=== PATIENT | male | born 1945 | race Caucasian/White ===

== ENCOUNTER → 2017-12-31 | Outpatient (CLI) | payer BC | END | disposition home or self-care (01) | LOC: US 09:57 | DX: K80.20 Calculus of gallbladder without cholecystitis without obstruction (principal) | CPT/HCPCS: 76705 ==

== ENCOUNTER 2021-03-24 20:50 | Emergency (ER) | payer BC, MEDICARE ==
[~2021-03-24] VITALS: Ht 175.3 cm; Wt 111.4 kg
[2021-03-24 21:13] VITALS: BP 162/76
[2021-03-24] MEDS ORDERED: NEOMY/BACITR/POLYMYXIN OINT PACKET. TP ONE (21:30)
--- NOTE | 2021-03-24 21:50 | RAD ---
Three-view left hand study Clinical indications: Dog bite FINDINGS: No acute fracture or dislocation or lytic process is seen. Old nonunited fracture of the me dial distal tuft of the fourth distal phalanx is seen. Old nonunited accessory ossification center of the distal ulnar styloid process is seen. No soft tissue air or radiopaque foreign body is evident. IMPRESSION: No acute osseous abnormality. Electronically signed by: Bernabe Mcgrath MD (03/24/2021 9:48 PM) [id number]
[2021-03-24] MEDS ORDERED: AMOX1TAB61 PO (21:56)
--- NOTE | 2021-03-24 21:59 | PHYS DOC ---
Past Medical History Past Medical History: Diabetes-Type II, Hypertension Past Surgical History: Other Additional Past Surgical Histo: C7 FX, LEFT WRIST PIN, BILAT ANKLE/FOOT PINS. Smoking Status: Former Smoker Alcohol Use: None Drug Use: None General Adult EDM: Chief Complaint: ANIMAL BITE HPI: HPI: 75-year-old male past medical history of [id number]-[id number] diabetes, hypertension and obesity presents to the ED with complaints of Takes daily aspirin, no other anticoagulants. Review of Systems: Review of Systems: Constitutional: Denies fever or chills. [] Eyes: Denies change in visual acuity. [] HENT: Denies nasal congestion or sore throat. [] Respiratory: Denies cough or shortness of breath. [] Cardiovascular: Denies chest pain or edema. [] GI: Denies abdominal pain, nausea, vomiting, bloody stools or diarrhea. [] : Denies dysuria. [] Musculoskeletal: Denies back pain or joint pain. [] Integument: Denies rash. [] Neurologic: Denies headache, focal weakness or sensory changes. [] Endocrine: Denies polyuria or polydipsia. [] Lymphatic: Denies swollen glands. [] Psychiatric: Denies depression or anxiety. [] Heart Score: C/O Chest Pain: No Risk Factors: Risk Factors: DM, Current or recent (<one month) smoker, HTN, HLP, family history of CAD, obesity. Risk Scores: Score 0 - 3: 2.5% MACE over next 6 weeks - Discharge Home Score 4 - 6: 20.3% MACE over next 6 weeks - Admit for Clinical Observation Score 7 - 10: 72.7% MACE over next 6 weeks - Early Invasive Strategies Current Medications: Current Medications Medications (Trade) Dose Ordered Sig/Tuyet Start Time Stop Time Status Last Admin Dose Admin Neomycin/ Polymyxin/ Bacitracin (Triple Antibiotic Ointment) 1 pkt 1X ONCE 03/24/21 21:30 03/24/21 21:31 DC Allergies: Allergies: Allergies Coded Allergies Type Severity Reaction Last Updated Verified No Known Drug Allergies 03/17/14 No Physical Exam: PE: Constitutional: Well developed, well nourished, no acute distress, non-toxic appearance. HENT: Normocephalic, atraumatic, Eyes: EOMI, conjunctiva normal, no discharge. Neck: Normal range of motion, supple, Cardiovascular: S1/2 present, regular rhythm Lungs & Thorax: Speaking in full sentences, bilateral equal chest rise, no tachypnea or increased work of breathing Abdomen: soft, no tenderness, Skin: Warm, dry, no erythema, no rash. [] Back: No tenderness, no CVA tenderness. [] Extremities: No tenderness, no cyanosis, no lower extremity edema Neurologic: Alert and oriented X 3, normal motor function, normal sensory function, no focal deficits noted. [] Psychologic: Affect normal, judgement normal, mood normal. [] Current Patient Data: Vital Signs: Vital Signs Date Time Temp Pulse Resp B/P (MAP) Pulse Ox O2 Delivery O2 Flow Rate FiO2 03/24/21 21:13 98.2 84 18 162/76 (104) 96 Room Air 98.2 EKG: EKG: [] Radiology/Procedures: Radiology/Procedures: []IMAGING REPORT Signed PATIENT: FRED KELLOGG ACCOUNT: [id number] : 1945 LOCATION: ER AGE: 75 SEX: M EXAM STATUS: PRE ER ORD. PHYSICIAN: JAX WINSTON DO REASON: dog bite to 3r5d/4th spae PROCEDURE: HAND LEFT 3V Three-view left hand study Clinical indications: Dog bite FINDINGS: No acute fracture or dislocation or lytic process is seen. Old nonunited fracture of the medial distal tuft of the fourth distal phalanx is seen. Old nonunited accessory ossification center of the distal ulnar styloid process is seen. No soft tissue air or radiopaque foreign body is evident. IMPRESSION: No acute osseous abnormality. Electronically signed by: Bernabe Mcgrath MD (03/24/2021 9:48 PM) [id number] DICTATED and SIGNED BY: BERNABE MCGRATH MD DATE: 03/24/21 [id number] Course & Med Decision Making: Course & Med Decision Making Pertinent Labs and Imaging studies reviewed. (See chart for details) Current recommendations support rabies prophylaxis from a bite or salivary exposure of bat or mammalian carnivore, if cannot capture animal, confirm rabies vaccination or observe animal x10 days. That if animal should have rabies and patients' symptoms would present approximately 20-90 days after incident, is highly likely and would be too late for any prevention or treatment. I understand that rabies incidence varies per location but the benefits of rabies prophylaxis outweighs the risks. Rabies vaccine is UTD (due in 10/2021). Will discharge home with strict ED return precautions were given for decreased range of motion, neurologic deficits, rash, swelling, worsening pain or swelling. Encouraged urgent outpatient follow-up with PMD and hand surgery as needed urgently for complications. Life-threatening processes were considered but are low suspicion at this time, given history, physical exam and ED workup. Pt was educated on all prescription medications and adverse effects. All patient's questions were answered and pt was stable at time of discharge. Life/limb-threatening differential includes but is not limited to, trauma (fracture, dislocation, laceration, compartment syndrome, tendon or ligament injury), neurovascular injury or deficitcva/tia, infection (osteomyelitis, abscess, cellulitis, septic arthritis, necrotizing fasciitis), deep vein thrombosis, renal/cardiac/liver disease, medication adverse effect, lymphedema/anasarca, vascular insufficiency or malignancy, I spoken with the patient and her caregivers. I explained the patient's condition, diagnoses and treatment plan based on the information available to me at this time. I have answered the patient and her caregiver's questions and addressed any concerns. The patient and her caregivers have a good understan ding of patient's diagnosis, condition and treatment plan as can be expected at this point. Vital signs have been stable. Patient's condition is stable and appropriate for discharge from the emergency department. Patient will pursue further outpatient evaluation with primary care physician or other designated or consulting physician as outlined in the discharge instructions. The patient and/or caregivers are agreeable to this plan of care and follow-up instructions have been explained in detail. The patient and/or caregivers have received these instructions in written form and have expressed an understanding of the discharge instructions. The patient and/or caregivers are aware that any significant change of condition or worsening of symptoms should prompt immediate return to this or the closest emergency department or call to 911. Cindy Disclaimer: Cindy Disclaimer: This electronic medical record was generated, in whole or in part, using a voice recognition dictation system. Departure Departure Impression: Primary Impression: Dog bite of left hand without complication Additional Impression: Need for tetanus, diphtheria, and acellular pertussis (Tdap) vaccine Condition: STABLE Referrals: TERESA NUNN MD (PCP) Patient Instructions: Animal Bite, VIS, Tetanus, Diphtheria (Td); Tetanus, Diphtheria, Pertussis (Tdap) - [facility], Wound Care, [id number] Additional Instructions: [facility] -follow-up in 48 hours if you should develop any decreased range of motion, rash, purulent drainage, worsening pain or swelling Appointments may be made with Anthony Ibarra MD, Heri Mathur MD, Peterson Sims MD or Nabila Wolff MD, by calling [phone] EMERGENCY DEPARTMENT GENERAL DISCHARGE INSTRUCTIONS Thank you for coming to [facility] Emergency Department (ED) today and trusting us with you care. We trust that you had a positive experience in our Emergency Department. If you wish to speak to the department management, you may call the Director at [phone]. YOUR FOLLOW UP INSTRUCTIONS ARE FOLLOWS: 1. Do you have a private Doctor? If you do not have a private doctor, please ask for a resource list of physicians or clinics that may be able to assist you with follow up care. 2. The Emergency Physicain has interpreted your x-rays. The X-Ray specialist will also review them. If there is a change in the findings, you will be notified in 48 hours when at all possible. 3. A lab test or culture has been done, your results will be reviewed and you will be notified if you need a change in treatment. ADDITIONAL INSTRUCTIONS AND INFORMATION: 1. Your care today has been supervised by a physician who is specially trained in emergency care. Many problems require more than one evaluation for a complete diagnosis and treatment. We recommend that you schedule your follow up appointment as recommended to ensure complete treatment of you illness or injury. If you are unable to obtain follow up care and continue to have a problem, or if your condition worsens, we recommend that you return to the ED. 2. We are not able to safely determine your condition over the phone nor are we able to give sound medical advice over the phone. For these safety reasons, if you call for medical advice we will ask you to come to the ED for further evaluation. 3. If you have any questions regarding these discharge instructions please call the ED at [phone]. SAFETY INFORMATION: In the interest of safety, wellness, and injury prevention; we encourage you to wear your sealbelt, if you smoke; quite smoking, and we encourage family to use a protective helmet for bicycling and other sporting events that present an increased risk for head injury. IF YOUR SYMPTOMS WORSEN OR NEW SYMPTOMS DEVELOP, OR YOU HAVE CONCERNS ABOUT YOUR CONDITION; OR IF YOUR CONDITION WORSENS WHILE YOU ARE WAITING FOR YOUR FOLLOW UP APPOINTMENT; EITHER CONTACT YOUR PRIMARY CARE DOCTOR, THE PHYSICIAN WHOSE NAME AND NUMBER YOU WERE GIVEN, OR RETURN TO THE ED IMMEDIATELY. Scripts Amoxicillin/Potassium Clav (AUGMENTIN 875-125 TABLET) 1 Each Tablet 1 TAB PO Q12HR for 10 Days, #20 TAB Prov: JAX WINSTON DO 03/24/21 JAX WINSTON DO Mar 24, 2021 21:59
== END 2021-03-24 22:15 ==
LOC: ER 20:50
DX: S61.452A Open bite of left hand, initial encounter (principal); E11.9 Type 2 diabetes mellitus without complications; I10 Essential (primary) hypertension; Z98.890 Other specified postprocedural states; Z87.891 Personal history of nicotine dependence; W54.0XXA Bitten by dog, initial encounter; Y93.89 Activity, other specified; Y92.89 Other specified places as the place of occurrence of the external cause; Y99.8 Other external cause status
CPT/HCPCS: 73130; 99282